=== PATIENT | female | born 1970 | race Caucasian/White ===

== ENCOUNTER 2016-12-27 19:19 | Emergency (ER) | payer BC, OTHER ==
[~2016-12-27] VITALS: Ht 165.1 cm; Wt 69.5 kg
[2016-12-27 19:34] VITALS: BP 124/87
[2016-12-27] MEDS ORDERED: HYDROcodone/APAP 5/325 TABLET ONE (21:04)
[2016-12-27] MEDS ORDERED: HYDROcodone/APAP 5/325 TABLET PO ONE (21:30)
== END 2016-12-27 21:22 | disposition home or self-care (01) ==
LOC: ED 21:16
DX: S82.202A Unspecified fracture of shaft of left tibia, initial encounter for closed fracture (principal); S83.521A Sprain of posterior cruciate ligament of right knee, initial encounter; M25.462 Effusion, left knee; X58.XXXA Exposure to other specified factors, initial encounter; Y93.89 Activity, other specified; Y99.8 Other external cause status; Y92.009 Unspecified place in unspecified non-institutional (private) residence as the place of occurrence of the external cause
CPT/HCPCS: 29505